=== PATIENT | male | born 1965 | race Caucasian/White ===

== ENCOUNTER 2017-02-28 05:56 | Day surgery (SDC) | payer BC ==
[2017-02-28] MEDS: IV RINGERS,LACTATED 1000ML 1,000 ML IV ×2 (06:47)
[2017-02-28] MEDS ORDERED: MORPHINE SULFATE 2 MG/ML DISP.SYRIN. IV ×2 (07:00)
[2017-02-28] MEDS ORDERED: HYDROmorphone 2 MG/ML VIAL IV ×2 (07:00)
[2017-02-28] MEDS ORDERED: ONDANSETRON PF 4 MG/2 ML VIAL. IV ×2 (07:00)
[2017-02-28] MEDS ORDERED: LIDOCAINE 1% PF 2 ML VIAL. ID ×2 (07:00)
[2017-02-28] MEDS ORDERED: fentaNYL PF VIAL 100 MCG/2 ML VIAL IV ×2 (07:00)
[2017-02-28] MEDS ORDERED: PROCHLORPERAZINE 10 MG/2 ML VIAL. IV ×2 (07:00)
[2017-02-28] MEDS: SUMAtriptan SUCCINATE 25 MG TABLET PO ×2 (07:15)
[2017-02-28] MEDS: fentaNYL PF VIAL 100 MCG/2 ML VIAL IV ×4 (07:23→07:35)
[2017-02-28] MEDS ORDERED: ROCURONIUM 50 MG/5 ML VIAL. ×4 (07:26→07:57)
[2017-02-28] MEDS ORDERED: fentaNYL PF VIAL 100 MCG/2 ML VIAL ×2 (07:26)
[2017-02-28] MEDS ORDERED: DEXAMETHASONE SOD PHOS 20 MG/5 ML VIAL. ×2 (07:28)
[2017-02-28] MEDS ORDERED: ONDANSETRON PF 4 MG/2 ML VIAL. ×2 (07:28)
[2017-02-28] MEDS ORDERED: LIDOCAINE 2% PF Vial for OR 5 ML VIAL. ×2 (07:28)
[2017-02-28] MEDS ORDERED: PROPOFOL 20 ML IV ×2 (07:28)
[2017-02-28] MEDS ORDERED: SEVOFLURANE 61 TO 120 MINUTES. IH ×2 (07:28)
[2017-02-28] MEDS ORDERED: NEOSTIGMINE 10 MG/10 ML VIAL. ×2 (07:44)
[2017-02-28] MEDS ORDERED: GLYCOPYRROLATE 1 MG/5 ML VIAL. ×2 (07:44)
[2017-02-28] MEDS: BUPIVACAINE MPF 0.5% 30 ML VIAL. ×2 (07:55)
[2017-02-28] MEDS ORDERED: REMIFENTANIL 1 MG VIAL. IV ×2 (08:23)
[2017-02-28] MEDS: oxyCODONE/APAP 5/325 1 TAB TABLET PO ×2 (10:01)
== END 2017-02-28 10:37 | disposition home or self-care (01) ==
LOC: SURG 05:56
DX: K42.9 Umbilical hernia without obstruction or gangrene (principal); I10 Essential (primary) hypertension; E78.00 Pure hypercholesterolemia, unspecified; K21.9 Gastro-esophageal reflux disease without esophagitis; F32.9 Major depressive disorder, single episode, unspecified; E66.9 Obesity, unspecified; Z72.89 Other problems related to lifestyle
CPT/HCPCS: 49585; J0690; J1100; J2405; J2704; J2710; J3010; J3490; J7120

== ENCOUNTER → 2017-03-09 | Outpatient (CLI) | payer BC ==
[2017-03-09] MEDS: IOHEXOL 240 MG/ML 50ML VIAL. PO ×2 (10:45)
[2017-03-09] MEDS: IOHEXOL 300 MG/ML 100ML VIAL. IV ×2 (11:54)
== END | disposition home or self-care (01) ==
LOC: CT 10:27
DX: K42.9 Umbilical hernia without obstruction or gangrene (principal); N20.0 Calculus of kidney; K76.0 Fatty (change of) liver, not elsewhere classified; G89.18 Other acute postprocedural pain; J98.11 Atelectasis; K80.20 Calculus of gallbladder without cholecystitis without obstruction; Z98.890 Other specified postprocedural states
CPT/HCPCS: 74177; Q9966; Q9967